=== PATIENT | male | born 1985 | race African-American/Black ===

== ENCOUNTER 2018-02-14 04:18 | Emergency (ER) | payer OTHER ==
[~2018-02-14] VITALS: Ht 182.9 cm; Wt 104.1 kg
[2018-02-14 04:58] LABS: HEMATOCRIT 41.4 % (38.0-50.0); HEMOGLOBIN 13.7 G/DL (12.5-16.6); MCH 28.1 PG (29.0-34.0); MCHC 33.1 G/DL (30.0-36.0); MCV 84.8 FL (86-99); PLATELET COUNT 249 K/uL (156-360); RBC DIS.WIDTH-CV 13.2 % (11.8-14.6); RBC DIS.WIDTH-SD 40.5 % (39-53); RED BLOOD COUNT 4.88 M/uL (4.00-5.50); WHITE BLOOD COUNT 8.2 K/uL (4.1-10.2)
[2018-02-14 05:04] LABS: ALBUMIN 4.2 g/dL (3.2-4.8); CHLORIDE 103 mEq/L (99-109); POTASSIUM 3.3 mEq/L (3.7-5.4); SODIUM 136 mEq/L (136-147)
[2018-02-14 05:06] LABS: GLUCOSE 102 mg/dL (70-99); TOTAL PROTEIN 7.8 g/dL (6.4-8.3)
[2018-02-14 05:08] LABS: TOTAL BILIRUBIN 1.1 mg/dL (0.0-1.0)
[2018-02-14 05:09] LABS: SERUM ETHYL ALCOHOL < 10 mg/dL
[2018-02-14 05:10] LABS: ALKALINE PHOSPHATASE 60 IU/L (3-129); CREATININE 1.2 mg/dL (0.6-1.3)
[2018-02-14 05:11] LABS: AST (GOT) 22 IU/L (2-34); UREA NITROGEN (BUN) 12 mg/dL (9-23)
[2018-02-14 05:13] LABS: ALT (GPT) 19 IU/L (3-49)
[2018-02-14 05:16] LABS: GFR ESTIMATE (CALCULATED) > 59 mL/min/ (58.99-99999)
[2018-02-14 05:37] LABS: COCAINE NEGATIVE (150 ng/mL); METHAMPHETAMINE NEGATIVE (500 ng/mL); PHENCYCLIDINE PRESUMPTIVE POSITIVE (25 ng/mL); THC CANNABINOIDS NEGATIVE (50 ng/mL)
[2018-02-14 05:38] LABS: AMPHETAMINE NEGATIVE (500 ng/mL); BARBITURATES NEGATIVE (200 ng/mL); BENZODIAZEPINES NEGATIVE (150 ng/mL); BUPRENORPHINE NEGATIVE (10 ng/mL); METHADONE NEGATIVE (200 ng/mL); OPIATES (MORPHINE) NEGATIVE (100 ng/mL); OXYCODONE NEGATIVE (100 ng/mL); PROPOXYPHENE NEGATIVE (300 ng/mL); TRICYCLIC ANTIDEPRESSANTS NEGATIVE (300 ng/mL)
[2018-02-14 05:50] VITALS: BP 143/71
== END 2018-02-14 05:50 ==
LOC: EME 04:18 → EDBD 04:18 → EME 05:50
PROVIDERS: Emergency Medicine
DX: F19.129 Other psychoactive substance abuse with intoxication, unspecified (principal)
CPT/HCPCS: 80053; 82948; 84999; 85027; 99281; 99283; G0480